=== PATIENT | male | born 1980 | race Caucasian/White ===

== ENCOUNTER → 2017-07-26 | Outpatient (CLI) | payer BC ==
[~2017-07-26] MED LIST: BACTRIM DS 8001 TA1 PO; CEPHALEXIN500 M1 PO
[2017-07-26 09:08] LABS: HEMATOCRIT 47.2 % (42.0-52.0); HEMOGLOBIN 16.3 g/dl (14.0-18.0); MEAN CELL VOLUME 89.6 fl (80.0-94.0); MEAN CORPUSCULAR HGB 30.9 pg (27.0-31.0); MEAN CORPUSCULAR HGB CONC 34.5 g/dl (33.0-37.0); MEAN PLATELET VOLUME 9.5 fl (9.6-12.3); RED BLOOD COUNT 5.27 10*6/uL (4.50-5.90); RED CELL DISTRI WIDTH 12.3 % (0-14.5); WHITE BLOOD COUNT 7.7 10*3/uL (4.8-10.8)
[2017-07-26 09:36] LABS: ALBUMIN 3.5 gm/dl (3.1-4.5); ALKALINE PHOSPHATASE 86 U/L (45-117); BUN 13 mg/dl (7-24); CHLORIDE 107 mmol/L (98-107); CHOLESTEROL 169 mg/dL (<200); CREATININE 1.12 mg/dL (0.70-1.30); HDL CHOLESTEROL 32 mg/dl (40-60); LDL CHOLESTEROL 114 mg/dL (9-159); POTASSIUM 4.3 mmol/L (3.5-5.1); SGOT/AST 17 IU/L (3-35); SGPT/ALT 31 U/L (12-78); SODIUM 141 mmol/L (136-145); TOTAL PROTEIN 7.3 gm/dL (6.4-8.2); TRIGLYCERIDES 115 mg/dl (<150); VLDL CHOLESTEROL 23 mg/dL (6-40)
== END | disposition home or self-care (01) ==
LOC: LAB 08:23
DX: L01.00 Impetigo, unspecified (principal); R21 Rash and other nonspecific skin eruption; F17.200 Nicotine dependence, unspecified, uncomplicated; R79.89 Other specified abnormal findings of blood chemistry

== ENCOUNTER 2018-03-31 12:43 | Emergency (ER) | payer OTHER, BC ==
[~2018-03-31] VITALS: Ht 180.3 cm; Wt 97.5 kg
[2018-03-31] MEDS ORDERED: ACULAR 0.5%3 ML OPH (13:19)
[2018-03-31] MEDS ORDERED: Tobrex Ophth S2.5 ML OPH (13:19)
== END 2018-03-31 13:37 | disposition home or self-care (01) ==
LOC: ED 12:43
DX: S05.02XA Injury of conjunctiva and corneal abrasion without foreign body, left eye, initial encounter (principal); W22.8XXA Striking against or struck by other objects, initial encounter; Y93.89 Activity, other specified; Y92.89 Other specified places as the place of occurrence of the external cause; Y99.8 Other external cause status

== ENCOUNTER → 2021-02-19 | Day surgery (SDC) | payer OTHER ==
[~2021-02-19] VITALS: Ht 180.3 cm; Wt 99.8 kg
[~2021-02-19] MED LIST changes: +ACULAR 0.5%3 ML OPH; +Tobrex Ophth S2.5 ML OPH
[2021-02-19 08:44] VITALS: BP 142/96
[2021-02-19 09:25] VITALS: BP 120/83
[2021-02-19 09:40] VITALS: BP 124/76
[2021-02-19 09:50] VITALS: BP 131/88
== END | disposition home or self-care (01) ==
LOC: SDC 02-15 09:30
PROVIDERS: ATTEND Surgery
DX: K59.01 Slow transit constipation (principal); D12.4 Benign neoplasm of descending colon; F17.210 Nicotine dependence, cigarettes, uncomplicated; Z79.899 Other long term (current) drug therapy; Z20.822 Contact with and (suspected) exposure to COVID-19

== ENCOUNTER → 2022-09-16 | Outpatient (CLI) | payer OTHER ==
[2022-09-16 11:18] LABS: HEMATOCRIT 47.2 % (42.0-52.0); MEAN CELL VOLUME 93.3 fl (80.0-94.0); MEAN CORPUSCULAR HGB 31.4 pg (27.0-31.0); MEAN CORPUSCULAR HGB CONC 33.7 g/dl (33.0-37.0); MEAN PLATELET VOLUME 8.6 fl (9.6-12.3); RED BLOOD COUNT 5.06 10*6/uL (4.50-5.90); RED CELL DISTRI WIDTH 12.7 % (0-14.5); WHITE BLOOD COUNT 7.6 10*3/uL (4.8-10.8)
[2022-09-16 11:42] LABS: ALKALINE PHOSPHATASE 68 U/L (46-116); BUN 10 mg/dl (9-23); CHLORIDE 104 mmol/L (98-107); CHOLESTEROL 168 mg/dL (<200); LDL CHOLESTEROL 96 mg/dL (9-159); POTASSIUM 4.1 mmol/L (3.4-5.1); SGPT/ALT 22 U/L (10-49); TOTAL PROTEIN 6.6 gm/dL (6.0-8.0); TRIGLYCERIDES 138 mg/dl (<150)
== END | disposition home or self-care (01) ==
LOC: LAB 10:45
PROVIDERS: ATTEND Physician Assistant
DX: Z00.00 Encounter for general adult medical examination without abnormal findings (principal); D17.1 Benign lipomatous neoplasm of skin and subcutaneous tissue of trunk

== ENCOUNTER → 2022-09-23 | Day surgery (SDC) | payer OTHER ==
[2022-09-23] VITALS (7 sets, daily range): BP systolic 81–167; BP diastolic 59–103
[~2022-09-23] VITALS: Ht 180.3 cm; Wt 97.5 kg
[~2022-09-23] MED LIST changes: +HYDROCODONE-AC1 EAC1 PO
== END | disposition home or self-care (01) ==
LOC: SDC 09-19 14:00
PROVIDERS: ATTEND Surgery
DX: L72.0 Epidermal cyst (principal); D17.1 Benign lipomatous neoplasm of skin and subcutaneous tissue of trunk; F17.210 Nicotine dependence, cigarettes, uncomplicated; Z79.899 Other long term (current) drug therapy

== ENCOUNTER → 2022-10-11 | Outpatient (CLI) | payer OTHER | END | disposition home or self-care (01) | LOC: CARD 10-10 08:00 | PROVIDERS: ATTEND Physician Assistant | DX: R00.1 Bradycardia, unspecified (principal) ==

== ENCOUNTER 2023-12-31 17:55 | Emergency (ER) | payer OTHER ==
[~2023-12-31] VITALS: Ht 180.3 cm; Wt 99.8 kg
[2023-12-31] MEDS ORDERED: Motrin,Rufen800 MG PO (18:45)
[2023-12-31] MEDS ORDERED: IBUPROFEN 800 MG TAB PO ONE (18:45)
[2023-12-31] MEDS ORDERED: Lidocaine Hydrochloride 30 ML VIAL SC ONE (19:05)
[2023-12-31] MEDS ORDERED: Lidocaine Hydrochloride 5 ML AMP ONE (19:19)
== END 2023-12-31 19:39 | disposition home or self-care (01) ==
LOC: ED 17:55
DX: S63.287A Dislocation of proximal interphalangeal joint of left little finger, initial encounter (principal); Z79.899 Other long term (current) drug therapy; W18.39XA Other fall on same level, initial encounter; Y93.89 Activity, other specified; Y92.89 Other specified places as the place of occurrence of the external cause; Y99.8 Other external cause status